=== PATIENT | male | born 1980 | race African-American/Black ===

== ENCOUNTER 2023-04-02 14:00 | Outpatient (RCR) | payer MEDICAID, SELFPAY | END 2023-04-16 14:35 | disposition home or self-care (01) | LOC: HO.PT 14:00 | PROVIDERS: PCP Nurse Practitioner Primary Care; Visit Provider Nurse Practitioner Primary Care | DX: M54.50 Low back pain, unspecified (principal) | CPT/HCPCS: 97110; 97161; 97530 ==

== ENCOUNTER 2023-11-06 15:43 | Emergency (ER) | payer MEDICAID, SELFPAY ==
--- NOTE | ~2023-11-06 | XR_ITS ---
EXAMINATION: XR HAND, RIGHT CLINICAL INFORMATION: Pain. Jammed middle finger. COMPARISON: None available. TECHNIQUE: PA, lateral, and oblique views of the right hand. FINDINGS: No fracture or dislocation. Joint spaces are maintained. Regional soft tissue is normal in appearance. XR/XR hand RT min 3V IMPRESSION: No fracture or dislocation.
[2023-11-06 16:07] VITALS: BP 125/64; PULSE 62; RESP 18; TEMP 36.8; O2SAT 100; BMI 22.4
--- NOTE | 2023-11-06 16:11 | ED.GENADULT ---
HPI - General Adult General Chief complaint: Extremity Injury, Upper Stated complaint: finger inj? Time Seen by Provider: 11/06/23 18:58 Source: patient and executive receptionist Mode of arrival: ambulatory Limitations: no limitations History of Present Illness HPI narrative: 43-year-old right-hand dominant male presents the ER for evaluation of right middle finger pain and swelling for the last 2 months. 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 He states the right middle finger hurts and is swollen. No known injury. It gets stuck in flexion from time to time. He has to push on the palm of his hand to make it extend. He made a splint out of popscile sticks with temporary relief. MD complaint: right middle finger pain and swelling Onset (ago): month(s) Location: right and upper extremity Radiation: proximal Severity: moderate Severity scale (1-10): 5 Quality: aching Pain Consistency: intermittent Relieving factors: rest Exacerbating factors: movement Associated symptoms: denies other symptoms Treatments prior to arrival: none Related Data Previous Rx's ?Medication ?Instructions ?Recorded ibuprofen 600 mg tablet 600 mg PO Q8H PRN pain #20 tabs 11/06/23 Allergies Allergy/AdvReac Type Severity Reaction Status Date / Time No Known Allergies Allergy Verified 11/06/23 16:12 [No Known Allergies*] Review of Systems Review of Systems: Yes all other systems are reviewed and are negative PMFSH Social History Social History Smoked in Last 30 Days: Yes Use of substances other than those prescribed or required for medical reasons: No Advance Directives: No Advance Directives Information Provided: No Physical Exam ED Vital Signs: Vital Signs - 24 hr 11/06/23 16:07 11/06/23 19:49 Temperature 98.3 F 98 F Pulse Rate 62 53 Respiratory Rate 18 18 Blood Pressure 125/64 124/81 Pulse Oximetry 100 98 Oxygen Delivery Method Room Air Room Air BMI result Body Mass Index 22.4 Appearance: Alert. Oriented X3. No acute distress. HEENT: normal inspection CVS: Normal heart rate and rhythm. Pulses normal. Respiratory: No respiratory distress. Skin: Skin warm and dry. Normal skin color. Normal skin turgor. No rashes. Extremities: right middle finger with mild-moderate swelling of the proximal finger , PIP and MCP joints mildly tender. hyperpigmentation of the PIP joint on the extensor surface, no erythema or warmth. FROM w/ residual flexion held passively. NV intact distally. Neuro: Oriented X 3. No motor deficit. No sensory deficit. Course Course Course Narrative: This is an RME: Additional HPI, ROS, PE not included below will be deferred to primary provider. 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 Pain worse w/ movment 7-02/26. No trauma. Denies fevers and chills. No numbness or tingling Medical Decision Making Medical Decision Making MDM Narrative: 43 year-old [id number]-yppqawmu male presents the ER for evaluation of 2 months of right middle finger pain and swelling. witnessed trigger finger, reports this occurs intermittently will treat conservatively w/ spint and nsaids. will encourage f/u with ortho/hand nurse staff community health used to discuss dx and tx. xray results normal stable for d/c home Differential Diagnosis Differential Diagnoses: The differential diagnosis associated with the presentation includes ?Dupuytren's contracture, diabetic cheiroarthropathy, MCP joint sprain, infection within the tendon sheath, calcific peritendinitis or periarthritis, or non-infectious tenosynovitis. Independent Interpretation I performed an independent interpretation of an: Plain X-Ray Interpretation: No acute fracture, agrees radiology read Radiology Impression Discussion of test interpretation with radiology: I have reviewed the radiologist's reading. Radiologist Impression: EXAMINATION: XR HAND, RIGHT CLINICAL INFORMATION: Pain. Jammed middle finger. COMPARISON: None available. TECHNIQUE: PA, lateral, and oblique views of the right hand. FINDINGS: No fracture or dislocation. Joint spaces are maintained. Regional soft tissue is normal in appearance. XR/XR hand RT min 3V IMPRESSION: No fracture or dislocation. Prescription Management I considered prescription management with: Pain Medication Critical Care Time Critical Care Time Critical Care Time: No Discharge Plan Discharge Clinical Impression: Trigger finger Qualifiers: Trigger finger location: middle finger Laterality: right Qualified Code(s): M65.331 - Trigger finger, right middle finger Patient Disposition: Home, Self-Care Instructions: Trigger Finger (ED) Additional Instructions: Your x-ray was normal Wear the splint as able to keep the finger immobilized Take the prescribed anti-inflammatory medication as needed for pain Recommend following up with Orthopedics - call for an appointment. They may be able to inject corticosteroids to help If you develop new or worsening symptoms call 911 or come back to the ER for further evaluation. Prescriptions: New ibuprofen 600 mg tablet 600 mg PO Q8H PRN (Reason: pain) Qty: 20 0RF Referrals: [facility] [place] [facility] [Provider Group] (trigger finger) Nunu Moreland MASTER SCHEDULER [Primary Care Provider] - Interventions: ED Discharge Assessment Last Done: 11/06/23 19:49 Discharge Date/Time: 11/06/23 19:49 Print Language: Nauruan
--- NOTE | 2023-11-06 19:15 | PC.NURSE ---
+CMS, mild swelling to r middle finger, splint in place by PA
[2023-11-06 19:49] VITALS: BP 124/81; PULSE 53; RESP 18; TEMP 36.6; O2SAT 98
== END 2023-11-06 19:49 | disposition home or self-care (01) ==
PROVIDERS: Emergency Provider Emergency Medicine; PCP Nurse Practitioner Primary Care
DX: M65.331 Trigger finger, right middle finger (principal)
CPT/HCPCS: 73130; 99283; 99284

== ENCOUNTER 2023-11-23 09:28 | Outpatient (AMB) | payer MEDICAID, SELFPAY ==
--- NOTE | 2023-11-23 09:29 | MHC.OFFVIS ---
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 Patient reports the pain has been going on for about 2 months, 4-5 on the 0-10 pain scale. Patient states pain is on and off, feels like numbing and tingling. He is using Ibuprofen for the pain with relief but the pain does come back. No known injury. He comes in today with a splint given by the ED. Seen at [facility] [place] ED on 11/06/23. 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 He was seen at ED on 11/06/23 where he was placed in a splint. He states he has numbness, tingling and intermittent pain in his finger and rates the pain as about 5 on the scale of 0-10. He also reports he has occasional locking in his finger. He finds transient relief with ibuprofen. He has not had any previous injury. 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 Review of Systems Const All systems reviewed & are unremarkable except as noted in HPI and below Physical Exam Const General: cooperative, healthy appearing, comfortable, no acute distress, well developed and alert Orientation/consciousness: patient oriented x3 HEENT Head: Yes normal to inspection, Yes normocephalic and Yes atraumatic Eyes General: appearance normal, both eyes and all related structures Resp Effort & Inspection: normal respiratory effort and able to speak in complete sentences Cardio Rate: regular rate Peripheral pulses: Peripheral pulses 2+ throughout GI Palpation (GI): Soft to palpation Skin Lesions: no lesions Rashes: no rashes Neuro General: patient oriented x3 Extrem Other: Right middle finger: Tender nodule along the A1 david with active catching and locking. NVI. Assessment & Plan Assessment & Plan (1) Trigger finger: Code(s): M65.30 - Trigger finger, unspecified finger Category: Medical Qualifiers: Laterality: right Trigger finger location: middle finger Qualified Code(s): M65.331 - Trigger finger, right middle finger Plan We discussed options which include conservative vs surgical intervention. At this time, she was placed in a night splint and ibuprofen 800 mg to take three times a day for the next 2 weeks to help with her symptoms since her catching and locking are not constant. she would expect to have improvement in next 6-8 weeks. If she continues to have worsening pain or locking, she will contact the office for an injection or surgical intervention, otherwise as needed. Medications: New ibuprofen 800 mg PO Q8H PRN 90 tabs 3RF pain 30 days Patient Instructions: Scribed for Barney Schuler PA-C, by Chas Kohli medical billing coder, on 11/23/2023 at 9:45 AM EST. I, Barney Schuler PA-C, have personally reviewed and agree with the information entered by the scribe. Coding Level of Care Code New Pt Level 3 (09746) Diagnoses Trigger finger M65.331 Laterality: right Trigger finger location: middle finger
== END 2023-11-23 09:59 | disposition home or self-care (01) ==
PROVIDERS: PCP Nurse Practitioner Primary Care; Visit Provider Physician Assistant
DX: M65.331 Trigger finger, right middle finger (principal)
CPT/HCPCS: 99203

== ENCOUNTER → 2023-11-23 09:28 | Outpatient (BNVA) | payer MEDICAID, SELFPAY | PROVIDERS: PCP Nurse Practitioner Primary Care; Visit Provider Physician Assistant | DX: M65.331 Trigger finger, right middle finger (principal) | CPT/HCPCS: 99212 ==